=== PATIENT | male | born 1935 | race Caucasian/White ===

== ENCOUNTER → 2020-04-19 | Outpatient (CLI) | payer MEDICARE ==
[~2020-04-19] MED LIST: ASPI81TA45 PO; BIFI4CAP PO; CARV3.1212 PO; CLOP75TA52 PO; FURO20TA3 PO; MULT-449 PO; PRAV40TA2 PO; RANO10002 PO; SACU1TAB PO; Vitamin D3 PO; omega-3 PO; potassium chloride PO
[2020-04-19 11:17] LABS: ALANINE AMINOTRANSFERASE 16 U/L (12-78); ANION GAP 5 mmol/L (5-15); CALCIUM 9.1 mg/dL (8.5-10.1); CHLORIDE 105 mmol/L (98-107); CREATININE 1.36 mg/dL (0.7-1.3)
[2020-04-19 11:19] LABS: ALKALINE PHOSPHATASE 72 U/L (45-117); BILIRUBIN,TOTAL 0.8 mg/dL (0.2-1.0); TOTAL PROTEIN 7.7 g/dL (6.4-8.2)
== END | disposition home or self-care (01) ==
LOC: STAR 09:00
PROVIDERS: ATTEND Internal Medicine
DX: Z01.812 Encounter for preprocedural laboratory examination (principal); Z20.828 Contact with and (suspected) exposure to other viral communicable diseases; Z12.11 Encounter for screening for malignant neoplasm of colon
CPT/HCPCS: 36415; 80053; 87635; 93005

== ENCOUNTER 2020-04-24 05:46 | Day surgery (SDC) | payer MEDICARE ==
[~2020-04-24] VITALS: Ht 177.8 cm; Wt 69.4 kg
[2020-04-24] MEDS ORDERED: LIDOCAINE-MPF 1%, 2ML INFIL ONE (07:00)
[2020-04-24] MEDS ORDERED: CHLORHEXIDINE 15 ML UDC MM ONE (07:00)
[2020-04-24] MEDS ORDERED: LACTATED RINGERS 1,000 ML IV SCH (07:00)
[2020-04-24] MEDS ORDERED: PHENYLEPHRINE 10 MG/ML ONE (07:55)
[2020-04-24] MEDS ORDERED: PROPOFOL 50 ML ONE (07:56)
== END 2020-04-24 09:55 | disposition home or self-care (01) ==
LOC: OUT 05:46
PROVIDERS: ATTEND Internal Medicine
DX: Z12.11 Encounter for screening for malignant neoplasm of colon (principal); D12.4 Benign neoplasm of descending colon; K57.30 Diverticulosis of large intestine without perforation or abscess without bleeding; K21.9 Gastro-esophageal reflux disease without esophagitis; I25.10 Atherosclerotic heart disease of native coronary artery without angina pectoris; I25.2 Old myocardial infarction; N18.9 Chronic kidney disease, unspecified; I50.9 Heart failure, unspecified; Z86.010 Personal history of colon polyps; Z95.810 Presence of automatic (implantable) cardiac defibrillator
CPT/HCPCS: 45380; 88305; J2370; J2704; J7120